=== PATIENT | male | born 1990 | race Caucasian/White ===

== ENCOUNTER 2019-06-02 12:16 | Emergency (ER) | payer OTHER, SELFPAY ==
[2019-06-02] MEDS ORDERED: Ketorolac Tromethamine 60 MG/2 ML VIAL ONE (13:01)
[2019-06-02] MEDS ORDERED: Ketorolac Tromethamine 30 MG/ML VIAL ONE (13:02)
--- NOTE | 2019-06-02 13:23 | RAD ---
XR Shoulder Lt 3 View STANDARD History: Injury Comparison: None. Findings: Mild soft tissue swelling. No acute fracture or malalignment. Impression: Mild soft tissue swelling without acute fracture or malalignment.
[2019-06-02] MEDS ORDERED: Bacitracin 1 PK ONE (13:32)
== END 2019-06-02 13:55 | disposition home or self-care (01) ==
LOC: ERS 12:16
DX: M25.512 Pain in left shoulder (principal); V29.9XXA Motorcycle rider (driver) (passenger) injured in unspecified traffic accident, initial encounter; Y93.55 Activity, bike riding
CPT/HCPCS: 96372; J1885